=== PATIENT | female | born 1965 | race Caucasian/White ===

== ENCOUNTER → 2017-01-17 | Outpatient (CLI) | payer OTHER | LOC: FIMAGING 17:47 | PROVIDERS: ATTEND Internal Medicine Cardiovascular Disease | DX: M79.604 Pain in right leg (principal) ==

== ENCOUNTER 2017-11-22 08:58 | Emergency (ER) | payer OTHER ==
[2017-11-22] MEDS ORDERED: ASPIRIN 325 MG TAB PO ONE (09:20)
--- NOTE | 2017-11-22 09:25 | CPEKG ---
Heart Rate: 75 RR Interval: 800 P-R Interval: 160 QRSD Interval: 80 QT Interval: 396 QTC Interval: 443 P [place]: 59 QRS [place]: 48 T Wave [place]: 62 EKG Severity - NORMAL ECG - EKG Impression: SINUS RHYTHM Electronically Signed By: Penny Hunt 22-Nov-2017 14:27:45
[2017-11-22 09:29] LABS: PLATELET COUNT 435 10^3/uL (150-400)
--- NOTE | 2017-11-22 09:53 | EDPHY ---
H & P Stated Complaint: l sided cp x 2 days Time Seen by Provider: 11/22/17 09:38 HPI/ROS: CHIEF COMPLAINT: Left-sided chest pain HISTORY OF PRESENT ILLNESS: 52-year-old female presents with left-sided chest pain. Onset of chest pain 3 days ago. The pain has been mild to moderate and persistent since onset. Pain increases with deep inspiration. No change with exertion. No associated symptoms. Cardiac risk factors negative. Nonsmoker; no family history; no hypertension, diabetes or hypercholesterolemia. REVIEW OF SYSTEMS: complete 10 point ROS negative except at noted in the HPI - Personal History LMP (Females 10-55): Hysterectomy Current Tetanus/Diphtheria Vaccine: Yes - Medical/Surgical History Hx Asthma: No Hx Chronic Respiratory Disease: No Hx Diabetes: No Hx Cardiac Disease: No Hx Renal Disease: No Hx Cirrhosis: No Hx Alcoholism: No Hx HIV/AIDS: No Hx Splenectomy or Spleen Trauma: No Other PMH: SURG: HYST, RENETTA, BARIATRIC, PLASTIC, EYE , TONSILS - Social History Smoking Status: Never smoked - Physical Exam Exam: General Appearance: Alert, pleasant Eyes: Pupils equal and round, no conjunctival pallor or injection ENT, Mouth: Mucous membranes moist Neck: Normal inspection Respiratory: Normal inspection, no chest wall tenderness, Lungs are clear to auscultation Cardiovascular: Regular rate and rhythm Gastrointestinal: Abdomen is soft and nontender Neurological: A&O, nonfocal, normal gait Skin: Warm and dry, no rash Extremities: Nontender, no pedal edema Psychiatric: Mood and affect normal Constitutional: Initial Vital Signs Temperature (C) 36.7 C 11/22/17 09:00 Heart Rate 80 11/22/17 09:00 Respiratory Rate 18 11/22/17 09:00 Blood Pressure 148/97 H 11/22/17 09:00 O2 Sat (%) 98 11/22/17 09:00 O2 Delivery Mode Room Air Allergies/Adverse Reactions: No Known Allergies Allergy (Verified 11/22/17 09:00) Home Medications: Medication Instructions Recorded [facility] 11/22/17 Medical Decision Making - Diagnostics EKG Interpretation: EKG interpreted by me reveals normal sinus rhythm, rate 75, no ST or T segment changes. Interpretation: Normal EKG Imaging Results: Imaging Impressions Chest X-Ray 11/22/17 09:21 Impression: Clear lungs. No acute process. Chest/Thorax CTA 11/22/17 10:19 Impression: 1. No evidence of thrombopulmonary embolic disease. 2. Mild bronchitis. No pneumonia or other acute process. Findings discussed with Emergency Department physician, Dr. Penny Hunt on November 22, 2017 at 1115 hours. Imaging: I viewed and interpreted images myself ED Course/Re-evaluation: This patient presents with prolonged chest pain, pleuritic in nature. Stat EKG reveals no evidence of ischemia or dysrhythmia. Chest x-ray is unremarkable. D -dimer ordered to rule out pulmonary embolism. If the D-dimer is normal, I feel that I can safely exclude pulmonary embolism, given no risk factors for pulmonary embolism and negative perc score. D-dimer is slightly elevated. CT pulmonary angiogram ordered and is unremarkable. Clinical presentation c/w musculoskeletal etiology of pain. Toradol 15 mg IV given. Will discharge the patient home. Ibuprofen instructions given. Differential Diagnosis: Differential diagnosis includes though it is not limited to pneumonia, pneumothorax, pulmonary embolism, aortic dissection, pericarditis, acute coronary syndrome. - Data Points Laboratory Results: Laboratory Results 11/22/17 09:10 11/22/17 09:10 11/22/17 11/22/17 11/22/17 09:15 09:10 09:10 WBC RBC Hgb Hct MCV MCH MCHC RDW Plt Count MPV Neut % (Auto) Lymph % (Auto) [place] % (Auto) Eos % (Auto) Baso % (Auto) Nucleat RBC Rel Count Absolute Neuts (auto) Absolute Lymphs (auto) Absolute Monos (auto) Absolute Eos (auto) Absolute Basos (auto) Absolute Nucleated RBC Immature Gran % Immature Gran # D-Dimer 0.54 ug/mLFEU H ug/mLFEU (0.00-0.50) Sodium 141 mEq/L mEq/L (135-145) Potassium 3.9 mEq/L mEq/L (3.3-5.0) Chloride 99 mEq/L mEq/L (97-110) Carbon Dioxide 30 mEq/l mEq/l (22-31) Anion Gap 12 mEq/L mEq/L (8-16) BUN 16 mg/dL mg/dL (7-23) Creatinine 0.9 mg/dL mg/dL (0.6-1.0) Estimated GFR > 60 Glucose 72 mg/dL mg/dL (70-100) Calcium 9.8 mg/dL mg/dL (8.5-10.4) POC Troponin I 0.00 ng/mL ng/mL (0.00-0.08) 11/22/17 09:10 WBC 7.63 10^3/uL 10^3/uL (3.80-9.50) RBC 5.62 10^6/uL H 10^6/uL (4.18-5.33) Hgb 16.0 g/dL g/dL (12.6-16.3) Hct 49.4 % H % (38.0-47.0) MCV 87.9 fL fL (81.5-99.8) MCH 28.5 pg pg (27.9-34.1) MCHC 32.4 g/dL g/dL (32.4-36.7) RDW 14.2 % % (11.5-15.2) Plt Count 435 10^3/uL H 10^3/uL (150-400) MPV 9.7 fL fL (8.7-11.7) Neut % (Auto) 66.9 % % (39.3-74.2) Lymph % (Auto) 19.5 % % (15.0-45.0) [place] % (Auto) 8.0 % % (4.5-13.0) Eos % (Auto) 4.3 % % (0.6-7.6) Baso % (Auto) 1.0 % % (0.3-1.7) Nucleat RBC Rel Count 0.0 % % (0.0-0.2) Absolute Neuts (auto) 5.10 10^3/uL 10^3/uL (1.70-6.50) Absolute Lymphs (auto) 1.49 10^3/uL 10^3/uL (1.00-3.00) Absolute Monos (auto) 0.61 10^3/uL 10^3/uL (0.30-0.80) Absolute Eos (auto) 0.33 10^3/uL 10^3/uL (0.03-0.40) Absolute Basos (auto) 0.08 10^3/uL 10^3/uL (0.02-0.10) Absolute Nucleated RBC 0.00 10^3/uL 10^3/uL (0-0.01) Immature Gran % 0.3 % % (0.0-1.1) Immature Gran # 0.02 10^3/uL 10^3/uL (0.00-0.10) D-Dimer Sodium Potassium Chloride Carbon Dioxide Anion Gap BUN Creatinine Estimated GFR Glucose Calcium POC Troponin I Medications Given: Discontinued Medications Aspirin (Aspirin) 325 mg PO EDNOW ONE Stop: 11/22/17 09:21 Last Admin: 11/22/17 09:26 Dose: 325 mg Ketorolac Tromethamine (Toradol) 15 mg IVP EDNOW ONE Stop: 11/22/17 11:25 Last Admin: 11/22/17 11:32 Dose: 15 mg Point of Care Test Results: Chemistry 11/22/17 09:15 POC Troponin I 0.00 ng/mL ng/mL (0.00-0.08) Departure - Departure Disposition: Home, Routine, Self-Care Clinical Impression: Chest pain Qualifiers: Chest pain type: intercostal pain Qualified Code(s): R07.82 - Intercostal pain Condition: Good Instructions: Chest Pain (ED) Additional Instructions: Ibuprofen 600 mg 3 times daily while the pain persists. Referrals: Alonso Polanco MD [Medical Doctor] - As per Instructions (Call to make an appointment.) Stand Alone Forms: Work Excuse
[2017-11-22] MEDS ORDERED: IOPAMIDOL (ISOVUE 370) 100 ML BTL IV ONE (10:25)
[2017-11-22] MEDS ORDERED: KETOROLAC 15 MG/1 ML SDV IVP ONE (11:24)
[2017-11-22 11:42] VITALS: BP 141/85
== END 2017-11-22 11:50 | disposition home or self-care (01) ==
DX: R07.82 Intercostal pain (principal)
CPT/HCPCS: 84484-PO; 96374; J1885; Q9967